=== PATIENT | female | born 1985 | race African-American/Black ===

== ENCOUNTER 2016-07-21 09:06 | Emergency (ER) | payer OTHER ==
[2016-07-21 09:18] VITALS: BMI 42.2
[2016-07-21] MEDS ORDERED: ACETAMINOPHEN 325 MG/TAB TABLET PO ONE (09:20)
[2016-07-21 11:09] VITALS: TEMP 102.7
--- NOTE | 2016-07-21 11:09 | EDPRACDOC ---
- General Information Chief Complaint: Sore Throat Stated Complaint: SORE THROAT/ BODY ACHES Time Seen by Provider: 07/21/16 11:04 Mode Of Arrival: Car Home Medications: Home Medications Acetaminophen with Codeine [TYLENOL WITH CODEINE; [employer] with Codeine] 5 ml PO Q4-6H PRN #120 ml 07/21/16 Amoxicillin Trihydrate [Amoxicillin] 500 mg PO TID #30 tab 07/21/16 Ibuprofen 600 mg PO TID #20 tablet 07/21/16 Allergies/Adverse Reactions: Allergies Allergy/AdvReac Type Severity Reaction Status Date / Time No Known Allergies Allergy Unverified 07/21/16 09:18 - History of Present Illness Onset: SAT HPI: PT PRESENTS TODAY WITH GENERAL MALAISE AND SORE THROAT X 5 DAYS. FEVER BEGAN THIS MORNING. DENIES RUCKER, CP, SHOB, ABD PAIN, N/V/D. NO PMH/MEDS/DISTRESS. Sore Throat Symptoms: Reports: Pain White Spots Location: Reports: Pharynx Recent: Reports: None Relevant History of: Reports: None Pain Severity: Reports: Moderate Urinary Output: Normal Oral Intake: Normal Associated Signs and Symptoms: Reports: Fever ED Past Medical History - History Reviewed Yes Nurses notes reviewed and agree except as marked - Patient Medical History GI/ History: Denies: Urinary Tract Infection - Social Medical History Smoking Status: Heavy tobacco smoker (5 or more cigarettes/day or daily pipe/ cigar) EDM Review of Systems - Review of Systems ROS Negative Except as Marked: Yes All systems reviewed and were negative except as marked Constitutional: Fever Eyes: No Symptoms Reported Ears: No Symptoms Reported Throat: Pain, Swelling Nose: No Symptoms Reported Respiratory: No Symptoms Reported Cardiovascular: No Symptoms Reported Gastrointestinal: No Symptoms Reported Neurological: No Symptoms Reported Musculoskeletal: No Symptoms Reported Integumentary: No Symptoms Reported - Physical Exam Constitutional: Alert (Awake), No apparent distress Oriented to: Time, Person, Place Last recorded Vital Signs: Last Vital Signs Temp 102.9 F H 07/21/16 10:34 Pulse 105 07/21/16 10:34 Resp 18 07/21/16 10:34 BP 137/74 07/21/16 10:34 Pulse Ox 100 07/21/16 10:34 Oxygen Pulse Oxygen Saturation 100 O2 Device Oxygen Flow Rate Fraction of Inspired Oxygen ( FIO2) - HEENT Head: Normal Eye Exam: Normal Oropharynx: Red, Tonsillar Hypertrophy, White Plaques Tympanic Membrane: Normal ENT EAC: Normal Nose: No Symptoms Reported Neck: Normal, Denies Pain, Midline - Respiratory/Cardiovascular Respiratory: Normal - CTA Cardiovascular: Tachycardia - GI Palpation: Normal Tenderness: Non tender - Musculoskeletal Back: Normal Extremities: Normal - Integumentary Skin: Hot Lymphatics: Normal - Neurologic Cerebellar: Normal Mood Description: Normal Thought: Coherent Perception: Normal - Results Microbiology 07/21/16 09:28 Influenza Type A Antigen Screen - Final Nasal Washing/Aspirate Or Swab NEGATIVE Please note: A NEGATIVE result does not exclude an influenza virus infection. It is a presumptive result and, if required, confirmation should be done using either a virus culture or an FDA-cleared influenza A&B molecular assay. ("NORMAL" value = "NEGATIVE".) Influenza Type B Antigen Screen - Final NEGATIVE Please note: A NEGATIVE result does not exclude an influenza virus infection. It is a presumptive result and, if required, confirmation should be done using either a virus culture or an FDA-cleared influenza A&B molecular assay. ("NORMAL" value = "NEGATIVE".) 07/21/16 09:28 Group A Streptococcus Rapid Screen - Final Throat - Rapid Strep NEGATIVE ("NORMAL" value = "NEGATIVE".) Decision Time to Discharge: 11:08 - Departure Disposition: Home Condition: Good Final Diagnosis: Streptococcal sore throat Instructions: Strep Throat (ED) Education/Counseling Given To: Patient Education/Counseling Given Regarding: Diagnosis, Treatment, Follow Up Referrals: None,No Provider [Primary Care Provider] - One Week MANJIT GARCIA [NonStaff] - One Week Prescriptions: New Acetaminophen with Codeine [TYLENOL WITH CODEINE; [employer] with Codeine] 5 ml PO Q4-6H PRN #120 ml PRN Reason: Pain Amoxicillin Trihydrate [Amoxicillin] 500 mg PO TID #30 tab Ibuprofen 600 mg PO TID #20 tablet Forms: Excuse Note Additional Instructions: DO NOT SHARE DRINKS OR FOOD. THIS IS CONTAGIOUS BY SALIVA.
[2016-07-21 11:42] VITALS: BP 133/79; PULSE 108
== END 2016-07-21 11:14 | disposition home or self-care (01) ==
LOC: ED 09:06 → EDMC 11:14
DX: J02.0 Streptococcal pharyngitis (principal)
CPT/HCPCS: 87804; 87880; 99283; J3490